=== PATIENT | male | born 1985 | race Caucasian/White ===

== ENCOUNTER 2018-06-06 18:53 | Emergency (ER) | payer OTHER, SELFPAY ==
[2018-06-06 19:06] VITALS: BP 132/81; PULSE 79; RESP 18; TEMP 37.2; O2SAT 98
--- NOTE | 2018-06-06 20:38 | ED.BACK ---
HPI - Back Pain/Injury General Chief Complaint: Back Pain/Injury Stated Complaint: HURT BACK AT WORK Time Seen by Provider: 06/06/18 20:38 Source: patient Mode of arrival: ambulatory Limitations: no limitations History of Present Illness HPI Narrative: A 32-year-old otherwise healthy male presents with a chief complaint lower midline back pain after lifting a heavy object at work. His pain is severe and radiates into his right hip. He denies any trouble with bowel or bladder control. He denies any numbness, tingling or weakness. He denies foot drop. He denies any direct trauma to the bones of his back and states this happened purely with lifting. He denies any history of back trouble. He has had no fever or chills MD Complaint: back pain Onset (ago): hour(s) Duration: constant Similar Symptoms Previously: No Location: lumbar spine Severity: severe Quality: burning and sharp Radiation: other (Right hip) Relieving factors: sitting upright Exacerbating factors: movement and walking Context: while lifting and turning/twisting Associated symptoms: denies other symptoms Related Data Previous Rx's Medication Instructions Recorded cyclobenzaprine 10 mg PO TID PRN #14 tab 06/06/18 hydrocodone-acetaminophen 1 tab PO Q4-6H PRN #14 tab 06/06/18 prednisone 20 mg PO DAILY #5 tab 06/06/18 Allergies Allergy/AdvReac Type Severity Reaction Status Date / Time No Known Drug Allergies Allergy Verified 06/06/18 19:06 Review of Systems Review of Systems All systems reviewed & are unremarkable except as noted in HPI and below Constitutional Denies chills, Denies fever(s), Denies lethargy and Denies weakness Eyes Denies change in vision, Denies eye discharge, Denies irritation and Denies loss of vision ENT Ears, Nose, Mouth, and Throat: Denies change in voice, Denies neck pain and Denies sore throat Cardiovascular Denies chest pain, Denies irregular heart rhythm, Denies lightheadedness, Denies palpitations, Denies dyspnea, Denies dyspnea on exertion and Denies orthopnea Respiratory Denies cough, Denies dyspnea, Denies dyspnea on exertion and Denies wheezing Gastrointestinal Gastrointestinal: Denies abdominal pain, Denies change in bowel habits, Denies diarrhea, Denies nausea and Denies vomiting Genitourinary Denies hematuria, Denies flank pain, Denies urinary incontinence and Denies urinary urgency Musculoskeletal Reports back pain and Denies neck pain Integumentary/Breasts Denies pruritus, Denies erythema, Denies rash and Denies wounds Neurologic Denies confusion, Denies loss of vision and Denies weakness Psychiatric Denies anxiety, Denies confusion, Denies depression, Denies homicidal ideation and Denies suicidal ideation Endocrine Denies palpitations Hematologic/Lymphatic Denies easy bruising Allergic/Immunologic Denies wheezing [facility] Social History Smoking Status: Never smoker Exam Narrative Exam Narrative: GEN: AOx3 and in mild distress EYES: Pupils are equal, round, and reactive to light and accommodation. Extraoccular muscles are intact bilaterally. There is no subconjunctival hemorrhage or exudate. CHEST: Lungs are clear to auscultation bilaterally and free of wheezes, rales, or rhonchi. Heart rate is regular rhythm, there are no murmurs, clicks, rubs, or gallops. There is no chest wall tenderness. ABD: Abdomen is soft and nontender. There is no guarding or rebound. Bowel sounds are normal in all 4 quadrants. There is no mass or organomegaly. EXT: Full painless ROM of all extremities with no loss of sensation or strength. SKIN: Warm, pink, and dry. No erythema or rash BACK: shredder tender peat but free of any obvious external abnormalities. Patient exam notes decreased range of motion and muscle spasm, but no CVA tenderness, or vertebral point tenderness. There are no symptoms of cauda equina such as saddle anesthesia, and decreased reflexes, decreased sensation or strength. Initial Vital Signs Initial Vital Signs: Vital Signs Temperature 98.9 F 06/06/18 19:06 Pulse Rate 79 06/06/18 19:06 Respiratory Rate 18 06/06/18 19:06 Blood Pressure 132/81 06/06/18 19:06 Pulse Oximetry 98 06/06/18 19:06 Course Orders Ordered: Discontinued Medications Hydrocodone Bitart/Acetaminophen (Vicodin Prepack) 1 bottle MISC SEEINSTR ONE Stop: 06/06/18 20:56 Last Admin: 06/06/18 21:43 Dose: 1 bottle Cyclobenzaprine HCl (Flexeril 10 Mg Prepack) 1 bottle MISC SEEINSTR ONE Stop: 06/06/18 20:56 Last Admin: 06/06/18 21:43 Dose: 1 bottle Ketorolac Tromethamine (Toradol) 60 mg IM NOW ONE Stop: 06/06/18 20:56 Last Admin: 06/06/18 21:43 Dose: 60 mg Prednisone (Deltasone) 40 mg PO NOW ONE Stop: 06/06/18 20:56 Last Admin: 06/06/18 21:43 Dose: 40 mg Vital Signs - 8 hr 06/06/18 19:06 Temperature 98.9 F Pulse Rate 79 Respiratory Rate 18 Blood Pressure 132/81 Pulse Oximetry 98 Discharge Plan Departure Patient Disposition: Home Clinical Impression: Lumbar radiculopathy Instructions: DI for Lumbar Radiculopathy Activity Restrictions/Additional Instructions: *You have been diagnosed with [ acute lumbar radiculopathy ] *What to do: *Take medications as directed *Follow up with your primary care provider in 2-3 days, call for an appointment. Let them know you were seen in the Emergency Department and that we ask that you be seen in follow up *Return to ER if you should have any new, worsening or concerning symptoms, such as [ increasing pain, numbness, tingling, weakness, loss of control of bowel or bladder] Prescriptions: New cyclobenzaprine 10 mg tablet 10 mg PO TID PRN (Reason: muscle spasm) Qty: 14 RF: 0 hydrocodone-acetaminophen 5-325 mg tablet 1 tab PO Q4-6H PRN (Reason: pain) Qty: 14 RF: 0 prednisone 20 mg tablet 20 mg PO DAILY Qty: 5 RF: 0
[2018-06-06 21:30] VITALS: BP 135/87; PULSE 75; RESP 15; O2SAT 100
[2018-06-06] MEDS: CYCLOBENZAPRINE 10 MG PREPACK 1 BOTTLE MISC (21:43)
[2018-06-06] MEDS: HYDROCODONE/ACET 5/325 PREPACK 1 BOTTLE MISC (21:43)
[2018-06-06] MEDS: predniSONE 20 MG TABLET 40 MG PO (21:43)
[2018-06-06] MEDS: KETOROLAC 60 MG/2 ML VIAL IM (21:43)
[2018-06-06 22:03] VITALS: BP 119/93; PULSE 68; RESP 15; O2SAT 100
[2018-06-06 22:04] VITALS: BP 127/85; PULSE 75; RESP 15; O2SAT 99
== END 2018-06-06 22:06 | disposition home or self-care (01) ==
PROVIDERS: Emergency Provider Emergency Medicine
DX: M54.16 Radiculopathy, lumbar region (principal); X50.0XXA Overexertion from strenuous movement or load, initial encounter
CPT/HCPCS: 96372; 99282; 99283; J1885

== ENCOUNTER → 2023-03-17 09:22 | Outpatient (CLI) | payer OTHER, SELFPAY ==
--- NOTE | 2023-03-17 09:26 | DI.MRI.S_ITS ---
PROCEDURE: MRFOOT LT WO CON INDICATIONS: pain in left foot TECHNIQUE: Noncontrast sagittal T1 spin echo and T2 fast spin echo with fat saturation, long-axis T1 spin echo and STIR, short-axis T1 spin echo and T2 fast spin echo with fat saturation through the forefoot. COMPARISON: [facility], CR, XR FOOT 3 VIEWS WEIGHT BEARING LEFT, 08/04/2021, 13:54. FINDINGS: Image quality: Excellent. Bones and joints: No bone marrow contusions or metatarsal stress fractures. The sesamoid bones appear in expected positions, without internal edema. [id number] degenerative changes of the 1st metatarsophalangeal joint. Mild scattered degenerative changes of the interphalangeal joints of the toes. No intraosseous lesions. Soft tissues: The visualized plantar foot muscles demonstrate normal signal and bulk. Visualized flexor and extensor tendons appear intact, without tenosynovitis. The distal insertions of the peroneus brevis and longus tendons appear intact. The principal Lisfranc ligament appears intact. No soft tissue ganglion cysts or bursal fluid collections. Sagittal images demonstrate no evidence for plantar plate tears. IMPRESSION: 1. 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 2. No acute trabecular bone injury. No significant ligament or tendon injury is seen in the forefoot. Approved by: Lázaro Hinson M.D. on 03/19/2023 at 10:37
--- NOTE | 2023-03-17 09:26 | DI.MRI.S_ITS ---
PROCEDURE: MR ANKLE LT WO CON INDICATIONS: pain in left foot TECHNIQUE: Noncontrast sagittal T1 spin echo and T2 fast spin echo with fat saturation, axial proton density fast spin echo and T2 fast spin echo with fat saturation, coronal T1 spin echo and T2 fast spin echo with fat saturation through the ankle/hindfoot. COMPARISON: [facility], MR, MR ANKLE LEFT WITHOUT CONTRAST, 10/14/2021, 16:39. FINDINGS: Image quality: Excellent. Bones and joints: No bone marrow contusions or fractures. No osteochondral injuries of the talar dome. Mild degenerative spurring of the dorsal talonavicular joint. 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 Medial structures: The deep and superficial layers of the deltoid ligament appear intact. The spring ligament components are intact. The posterior tibialis, flexor digitorum longus, and flexor hallucis longus tendons are intact. The posterior tibial neurovascular bundle appears normal within the tarsal tunnel, without extrinsic mass effect. Lateral structures: Increased signal intensity is again seen within the posterior talofibular ligament that appear similar when compared to the MRI from 10/14/2021, suspicious for a remote prior sprain. The anterior talofibular ligament and the calcaneofibular ligament appear to be intact. The anterior and posterior tibiofibular ligaments appear intact. The peroneus longus and brevis tendons demonstrate normal location and morphology. The sinus tarsi demonstrates normal fatty signal. Anterior structures: The tibialis anterior, extensor hallucis longus, and extensor digitorum longus tendons appear intact. Posterior and plantar structures: Small nonedematous posterior calcaneal enthesophyte. Achilles tendon is intact. Medial and lateral bands of the plantar fascia are of normal thickness. No abductor digiti quinti muscle atrophy to suggest Sadler neuropathy. IMPRESSION: 1. Stable increased signal intensity within the posterior talofibular ligament that again could possibly be the sequela of a remote prior isolated low-grade sprain versus joint fluid interdigitating between ligament fibers. No definite ligament discontinuity is seen. The anterior talofibular ligament and calcaneofibular ligament remain intact. 2. 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 3. Mild degenerative spurring of the dorsal aspect of the talonavicular joint. Approved by: Lázaro Hinson M.D. on 03/19/2023 at 10:37
== END ==
PROVIDERS: Referring Provider Podiatrist; Visit Provider Podiatrist
DX: S93.602A Unspecified sprain of left foot, initial encounter (principal); M19.072 Primary osteoarthritis, left ankle and foot; M79.672 Pain in left foot; X58.XXXA Exposure to other specified factors, initial encounter
CPT/HCPCS: 73718; 73721

== ENCOUNTER 2023-05-20 13:03 | Emergency (ER) | payer OTHER, SELFPAY ==
[2023-05-20 13:34] VITALS: BP 140/84; PULSE 93; RESP 16; TEMP 36.7; O2SAT 97; BMI 28.3
[2023-05-20 14:05] LABS: Strep Grp A by PCR Rapid Negative (Negative)
--- NOTE | 2023-05-20 18:11 | DI.RAD.S_ITS ---
PROCEDURE: XR SOFT TISSUE NECK INDICATIONS: throat pain, feels like something stuck TECHNIQUE: 2 views of the neck were acquired. COMPARISON: None. FINDINGS: Airway: The airway appears patent. Soft tissues: Prevertebral soft tissues are normal in thickness. The epiglottis and aryepiglottic folds appear normal. No soft tissue gas. Bones: No suspicious bony lesions. Visualized cervical spine is normally aligned. IMPRESSION: No radiopaque foreign body identified. No tissue swelling of the prevertebral soft tissues Dictated by: Frank Copeland M.D. on 05/20/2023 at 17:27 Approved by: Frank Copeland M.D. on 05/20/2023 at 17:28
--- NOTE | 2023-05-20 18:12 | ED.URI ---
HPI - URI/Sore Throat General Chief Complaint: Upper Respiratory Symptoms Stated Complaint: throat pain/feels like somethings stuck Time Seen by Provider: 05/20/23 18:05 History of Present Illness HPI Narrative: 37-year-old male nonsmoker with noncontributory chronic medical history presents with a chief complaint of throat pain on the right lower side of his throat and he feels almost like something might be stuck but does not recall any specific or memorable event in terms of possible foreign body. He denies any runny nose, fever or chills. He is had no cough or shortness of breath. He is able to eat and drink but does state that he can feel when things go down. He denies any history of the same. Related Data Previous Rx's Medication Instructions Recorded cyclobenzaprine 10 mg tablet 10 mg PO TID PRN muscle spasm #14 06/06/18 tabs hydrocodone 5 mg-acetaminophen 325 1 tab PO Q4-6H PRN pain #14 tabs 06/06/18 mg tablet prednisone 20 mg tablet 20 mg PO DAILY #5 tabs 06/06/18 Allergies Allergy/AdvReac Type Severity Reaction Status Date / Time No Known Drug Allergies Allergy Verified 06/06/18 19:06 Review of Systems Review of Systems Narrative: GENERAL: Denies chills, fatigue, malaise, fever, sweats. HEENT: See HPI RESPIRATORY: Denies dyspnea, cough, wheezing, hemoptysis, sputum. CARDIOVASCULAR: Denies chest pain, palpitations, orthopnea, edema, GASTROINTESTINAL: Denies nausea, vomiting, abdominal pain, diarrhea, constipation, melena. : Denies dysuria, frequency, incontinence, hematuria, urinary retention. MUSCULOSKELETAL: denies weakness, joint pain, or bony pain SKIN: Denies rash, skin lesions, or other NEUROLOGIC: Denies weakness, headache, numbness, change in speech, confusion, seizures, incoordination. PSYCHIATRIC: No concerning psychosocial issues. 12 point review of systems is negative except for those stated above Patient History Social History Smoking Status: Never smoker Smoking Status: Never smoker alcohol intake frequency: holidays/special occasions only Substance Use Type: does not use Exam Narrative Exam Narrative: GEN: AOx3 and in mild distress EYES: Pupils are equal, round, and reactive to light and accommodation. Extraoccular muscles are intact bilaterally. There is no subconjunctival hemorrhage or exudate. ENT: Moist mucous membranes, no tonsillar swelling, exudate or erythema, no evidence of mass, no pointing uvula. Controlling secretions, airway patent. No obvious swelling or anterior lymphadenopathy on exam CHEST: Lungs are clear to auscultation bilaterally and free of wheezes, rales, or rhonchi. Heart rate is regular rhythm, there are no murmurs, clicks, rubs, or gallops. There is no chest wall tenderness. ABD: Abdomen is soft and nontender. There is no guarding or rebound. Bowel sounds are normal in all 4 quadrants. There is no mass or organomegaly. EXT: Full painless ROM of all extremities with no loss of sensation or strength. SKIN: Warm, pink, and dry. No erythema or rash Initial Vital Signs Initial Vital Signs: Vital Signs Temperature 98.0 F 05/20/23 13:34 Pulse Rate 93 H 05/20/23 13:34 Respiratory Rate 16 05/20/23 13:34 Blood Pressure 140/84 05/20/23 13:34 Pulse Oximetry 97 05/20/23 13:34 Oxygen Delivery Method Room Air 05/20/23 13:34 Course Orders Ordered: ED Orders 05/20/23 13:38 Strep Grp A by PCR Rapid Stat Throat Culture Stat 05/20/23 18:11 XR soft tissue neck Stat Vital Signs Vital signs: Vital Signs - 8 hr 05/20/23 13:34 05/20/23 18:14 Temperature 98.0 F Pulse Rate 93 H 95 H Respiratory Rate 16 18 Blood Pressure 140/84 140/82 Pulse Oximetry 97 98 Oxygen Delivery Method Room Air Room Air MDM - URI/Sore Throat Lab Data Labs: Lab Results 05/20/23 Range/Units 13:38 Group A Strep (PCR) Negative (Negative) MDM Narrative Medical decision making narrative: [37] year old patient presents with throat pain and possible foreign body Multiple etiologies for patient's symptoms considered including, but not limited to: [Foreign body versus infectious process versus other] Prior Charts reviewed in our EMR Primary Historian: patient Labs reviewed and interpreted by myself: Rapid strep negative Imaging reviewed: Soft tissue neck without swelling of obvious foreign body History and physical are reassuring. IMaging and swabs without abnormalities. Able to tolerated food and drink, no trouble breathing. No indication for further labs/imaging. Would likely benefit from endoscopic evaluation Patient's symptoms improved over duration of stay with above-stated therapies. Findings and discharge diagnosis discussed with patient/family followed by verbalization of understanding Return precautions discussed with patient/family whom verbalize understanding of diagnosis and plan Discharge Plan Departure Patient Disposition: Home Clinical Impression: Pain in throat Instructions: Sore Throat Activity Restrictions/Additional Instructions: *You have been diagnosed with [pain in throat. As we discussed your history and physical exam are reassuring and your x-ray shows no obvious swelling or foreign body.] *What to do: *Please continue to take your regular medications as directed. [ ] New medication prescriptions sent to your pharmacy: [ ] [ ] New medication written as a paper prescription [ ] No new medications given *Please follow up with your primary care provider in 2-3 days, call for an appointment. Let them know you were seen in the Emergency Department and that we ask that you be seen in follow up. We will electronically transmit a record of today's note if your PCP is in our system * as we discussed I have included the contact information for [facility]. It would seem reasonable to talk with them about the possibility of endoscopy to take a look. *If you do not have a primary care provider please contact the [facility] Resource line at [phone]. They will ask some questions about your medical history and help get you set up with a doctor in the community. *Return to Emergency Department if you should have any new, worsening or concerning symptoms, such as [fever greater than 101 F, shaking chills, worsening pain, persistent vomiting or other bothersome symptoms] Prescriptions: No Action cyclobenzaprine 10 mg tablet 10 mg PO TID PRN (Reason: muscle spasm) Qty: 14 0RF hydrocodone-acetaminophen 5-325 mg tablet 1 tab PO Q4-6H PRN (Reason: pain) Qty: 14 0RF prednisone 20 mg tablet 20 mg PO DAILY Qty: 5 0RF Rx Instructions: administer with food or milk Referrals: Abdirahman Corona MD [Physician] - Stand Alone Forms: Patient Portal/API
[2023-05-20 18:14] VITALS: BP 140/82; PULSE 95; RESP 18; O2SAT 98
== END 2023-05-20 19:17 | disposition home or self-care (01) ==
PROVIDERS: Emergency Medicine; Emergency Provider Emergency Medicine
DX: R07.0 Pain in throat (principal)
CPT/HCPCS: 70360; 87070; 87651; 99281; 99283

== ENCOUNTER 2023-08-07 12:50 | Emergency (ER) | payer OTHER, SELFPAY ==
[2023-08-07 12:52] VITALS: BP 141/76; PULSE 73; RESP 18; TEMP 36.6; O2SAT 95; BMI 29.1
--- NOTE | 2023-08-07 13:01 | DI.RAD.S_ITS ---
PROCEDURE: XR CHEST 1V INDICATIONS: chest pain TECHNIQUE: One view of the chest was acquired. COMPARISON: None. FINDINGS: Surgical changes and devices: None. Lungs and pleura: Lungs are clear. No pleural effusions or pneumothorax. Mediastinum: Mediastinal contours appear normal. Heart size is normal. Bones and chest wall: No suspicious bony lesions. Overlying soft tissues appear unremarkable. IMPRESSION: No acute cardiopulmonary process. Dictated by: Holland Lee M.D. on 08/07/2023 at 13:42 Approved by: Holland Lee M.D. on 08/07/2023 at 13:43
[2023-08-07 13:08] VITALS: PULSE 77; RESP 18; O2SAT 96
[2023-08-07 13:25] LABS: Basophils Absolute Auto 100 /uL (0-100); Eosinophils Absolute Auto 100 /uL (0-450); Eosinophils Percent Auto 0.7 % (2-4); Red Cell Distribution Width 13.2 % (11.6-14.8)
[2023-08-07 13:29] LABS: Add Manual Diff / Slide Review NO; Basophils Percent Auto 0.8 % (0-2); Hematocrit 47.3 % (41-53); Hemoglobin 16.6 g/dL (13.5-17.5); Lymphocytes Absolute Auto 2700 /uL (1100-4500); Lymphocytes Percent Auto 25.7 % (25-40); Mean Corpuscular HGB Conc 35.1 % (30-36); Mean Corpuscular Hemoglobin 31.4 PG (26-34); Mean Corpuscular Volume 89.5 fL (80-100); Monocytes Absolute Auto 600 /uL (0-900); Monocytes Percent Auto 5.7 % (3-14); Neutrophils Absolute Auto 7000 /uL (1500-7000); Neutrophils Percent Auto 67.1 % (50-75); Platelet Count 245 X10^3/uL (150-400); Red Blood Cell Count 5.28 X10^6/uL (4.5-5.9); White Blood Cell Count 10.4 X10^3/uL (4.5-11.0)
[2023-08-07 13:30] VITALS: BP 138/77; PULSE 76; RESP 18; O2SAT 97
[2023-08-07 13:34] LABS: Alanine Aminotransferase 52 IU/L (<50); Albumin 4.6 g/dL (3.5-5.0); Albumin Globulin Ratio 1.5 (1.0-2.8); Alkaline Phosphatase 55 U/L (38-126); Aspartate Aminotransferase 36 IU/L (17-59); BUN Creatinine Ratio 12.4 (6-22); Bilirubin Total 0.8 mg/dL (0.2-1.3); Blood Urea Nitrogen 12 mg/dL (9-20); Calcium 9.6 mg/dL (8.4-10.2); Carbon Dioxide 28 mmol/L (22-32); Chloride 101 mmol/L (98-107); Creatine Kinase 102 U/L (55-170); Estimated Glomerular Filt Rate > 60 mL/min (>60); Globulin 3.1 g/dL (1.7-4.1); Glucose 135 mg/dL (70-100); HEMOLYSIS 25 (0-50); Lipase 80 U/L (23-300); Sodium 137 mmol/L (137-145); Total Protein 7.7 g/dL (6.3-8.2)
[2023-08-07] MEDS: ASPIRIN 81 MG CHEW TAB 324 MG PO (13:36)
--- NOTE | 2023-08-07 13:43 | DI.US.S_ITS ---
PROCEDURE: US ABDOMEN LIMITED INDICATIONS: RIGHT UPPER QUADRANT PAIN TECHNIQUE: Real-time scanning was performed of the abdominal and retroperitoneal organs, with image documentation. COMPARISON: None. FINDINGS: Liver: The liver is increased in echogenicity. The liver is normal in size. There is focal fatty sparing adjacent to the gallbladder. Gallbladder: The gallbladder is normal in appearance without gallstones or gallbladder wall thickening. Biliary ducts: Intrahepatic bile ducts are non-dilated. Extrahepatic bile duct caliber measures 2 mm. Normal is 6-7 mm or less in diameter, or 10 mm or less post-cholecystectomy. Pancreas: Visualized portions of the pancreas are sonographically normal. IVC: Patent IMPRESSION: 1. The gallbladder is normal in appearance without gallstones or gallbladder wall thickening. 2. Increased hepatic echogenicity noted possibly related to hepatic steatosis but other sources of hepatocellular disease or hepatic cirrhosis cannot be excluded. Recommend clinical correlation. Dictated by: Holland Lee M.D. on 08/07/2023 at 14:48 Approved by: Holland Lee M.D. on 08/07/2023 at 14:49
[2023-08-07 13:44] LABS: Troponin I < 0.012 ng/mL (0.01-0.034)
--- NOTE | 2023-08-07 13:44 | ED.CHESTPAIN ---
HPI - Chest Pain General Chief Complaint: Chest Pain Stated Complaint: chest pain/behind rt ribs Time Seen by Provider: 08/07/23 13:21 Source: patient Mode of arrival: Ambulatory Limitations: no limitations History of Present Illness HPI narrative: 38-year-old male with remote history of spontaneous pneumothorax x2 (pleurodesis at 17yo, no subsequent PTX) presents for right-sided upper abdominal/lower chest pain. Patient noticed a sharp pain when he woke up this morning. He states that it feels different from his pneumothorax and from a kidney stone, both of which she is had in the past. No medications taken prior to arrival. Pain-free currently. Denies history of abdominal surgeries. Patient points to his R upper abdomen just at the base of the rib cage as source of pain. Related Data Previous Rx's Medication Instructions Recorded cyclobenzaprine 10 mg tablet 10 mg PO TID PRN muscle spasm #14 06/06/18 tabs hydrocodone 5 mg-acetaminophen 325 1 tab PO Q4-6H PRN pain #14 tabs 06/06/18 mg tablet prednisone 20 mg tablet 20 mg PO DAILY #5 tabs 06/06/18 Allergies Allergy/AdvReac Type Severity Reaction Status Date / Time No Known Drug Allergies Allergy Verified 06/06/18 19:06 Review of Systems Review of Systems Narrative: CONSTITUTIONAL- Denies: fever, chills, fatigue HEENT- Denies: sore throat, nosebleed, vision changes RESPIRATORY- Denies: shortness of breath, cough, wheezing CARDIAC-reports: Right-sided chest pain Denies: edema, orthopnea GI-reports: Right-sided abdominal pain Denies: nausea, vomiting, constipation, diarrhea - Denies: frequency, dysuria, hematuria, flank pain MSK- Denies: extremity pain, extremity swelling, joint pain, joint swelling SKIN- Denies: rash, itching, burn, swelling NEUROLOGICAL- Denies: headache, numbness, weakness, dizziness PSYCHIATRIC- Denies: anxiety, depression, suicidal ideation, homicidal ideation Patient History Social History Smoking Status: Never smoker Smoking Status: Never smoker alcohol intake frequency: holidays/special occasions only Substance Use Type: does not use Exam Initial Vital Signs Initial Vital Signs: Vital Signs Temperature 97.8 F 08/07/23 12:52 Pulse Rate 73 08/07/23 12:52 Respiratory Rate 18 08/07/23 12:52 Blood Pressure 141/76 H 08/07/23 12:52 Pulse Oximetry 95 08/07/23 12:52 Oxygen Delivery Method Room Air 08/07/23 12:52 Const: Awake, alert, no acute distress, nontoxic appearing Eyes: PERRL, EOMI, conjunctiva normal ENT: Atraumatic, dentition normal, mucous membranes moist Cardiac: regular rate, regular rhythm RESP: unlabored, clear bilaterally, no wheezing GI: Atraumatic, soft, nontender, negative Husain's sign MSK: Atraumatic, full range of motion, pulses equal Skin: Warm, Dry, intact, no rashes Neuro: AO x3, CN II-XII grossly intact, moves all extremities Psych: affect normal, mood normal, not suicidal, not homicidal Course Course Course Narrative: Right lower chest/right upper abdominal pain. No reproducible tenderness to palpation. Currently asymptomatic. Patient is reported area of the pain is near liver/gallbladder. Will add US of abdomen. Orders Ordered: Discontinued Medications Aspirin (Aspirin 81 Mg Chew Tab) 324 mg PO NOW ONE Stop: 08/07/23 13:02 Last Admin: 08/07/23 13:36 Dose: 324 mg Documented By: RLS Reevaluation(s) Reevaluation #1: Laboratory work is reviewed, unremarkable. Chest x-ray normal, no explanation for symptoms. Ultrasound of the upper quadrant shows possible fatty infiltration of the liver, no other acute abnormalities. Patient informed of the abdominal ultrasound results, and counseled to follow up routinely with PCP for this finding. ED return precautions discussed at bedside. Patient expressed understanding of the plan and is in agreement at this time. All questions answered at the time of discharge. Vital Signs Vital signs: Vital Signs - 8 hr 08/07/23 12:52 08/07/23 13:08 08/07/23 13:30 Temperature 97.8 F Pulse Rate 73 77 76 Respiratory Rate 18 18 18 Blood Pressure 141/76 H Pulse Oximetry 95 96 97 Oxygen Delivery Method Room Air 08/07/23 13:30 08/07/23 14:00 08/07/23 14:00 Temperature Pulse Rate 72 Respiratory Rate 16 Blood Pressure 138/77 115/65 Pulse Oximetry 97 Oxygen Delivery Method Room Air 08/07/23 14:30 08/07/23 14:30 08/07/23 15:00 Temperature Pulse Rate 81 78 Respiratory Rate 23 15 Blood Pressure 126/90 Pulse Oximetry 97 96 Oxygen Delivery Method 08/07/23 15:00 Temperature Pulse Rate Respiratory Rate Blood Pressure 135/82 Pulse Oximetry Oxygen Delivery Method MDM - Chest Pain Differential Diagnosis Differential diagnosis: Likely pneumothorax, atypical chest pain and costochondritis Lab Data 08/07/23 13:08 08/07/23 13:08 Labs: Lab Results 08/07/23 Range/Units 13:08 WBC 10.4 (4.5-11.0) X10^3/uL RBC 5.28 (4.5-5.9) X10^6/uL Hgb 16.6 (13.5-17.5) g/dL Hct 47.3 (41-53) % MCV 89.5 (80-100) fL MCH 31.4 (26-34) PG MCHC 35.1 (30-36) % RDW 13.2 (11.6-14.8) % Plt Count 245 (150-400) X10^3/uL Neut % (Auto) 67.1 (50-75) % Lymph % (Auto) 25.7 (25-40) % [place] % (Auto) 5.7 (3-14) % Eos % (Auto) 0.7 L (2-4) % Baso % (Auto) 0.8 (0-2) % Neut # (Auto) 7000 (3813-5986) /uL Lymph # (Auto) 2700 (9853-8486) /uL [place] # (Auto) 600 (0-900) /uL Eos # (Auto) 100 (0-450) /uL Baso # (Auto) 100 (0-100) /uL Sodium 137 (137-145) mmol/L Potassium 4.0 (3.4-5.1) mmol/L Chloride 101 (98-107) mmol/L Carbon Dioxide 28 (22-32) mmol/L BUN 12 (9-20) mg/dL Creatinine 0.97 (0.66-1.25) mg/dL Estimated GFR > 60 (>60) mL/min BUN/Creatinine Ratio 12.4 (6-22) Glucose 135 H (70-100) mg/dL Calcium 9.6 (8.4-10.2) mg/dL Total Bilirubin 0.8 (0.2-1.3) mg/dL AST 36 (17-59) IU/L ALT 52 H (<50) IU/L Alkaline Phosphatase 55 (38-126) U/L Total Creatine Kinase 102 (55-170) U/L Troponin I < 0.012 (0.01-0.034) ng/mL Total Protein 7.7 (6.3-8.2) g/dL Albumin 4.6 (3.5-5.0) g/dL Globulin 3.1 (1.7-4.1) g/dL Albumin/Globulin Ratio 1.5 (1.0-2.8) Lipase 80 (23-300) U/L ECG Data Interpretation: Normal sinus rhythm, MN intervals normal, no STT wave changes, no STEMI Discharge Plan Departure Patient Disposition: Home Clinical Impression: Abdominal pain Qualifiers: Abdominal location: right upper quadrant Qualified Code(s): R10.11 - Right upper quadrant pain Instructions: DI for Abdominal Pain-Adult Activity Restrictions/Additional Instructions: You were seen today for right-sided pain behind the ribs. Your laboratory work today was normal, the ultrasound of your abdomen did show that you have a mildly fatty liver, they recommend that you follow up with your primary care physician for further monitoring of this finding. You may take Tylenol and Motrin as needed for pain. Prescriptions: No Action cyclobenzaprine 10 mg tablet 10 mg PO TID PRN (Reason: muscle spasm) Qty: 14 0RF hydrocodone-acetaminophen 5-325 mg tablet 1 tab PO Q4-6H PRN (Reason: pain) Qty: 14 0RF prednisone 20 mg tablet 20 mg PO DAILY Qty: 5 0RF Rx Instructions: administer with food or milk Stand Alone Forms: Patient Portal/API
[2023-08-07 14:00] VITALS: BP 115/65; PULSE 72; RESP 16; O2SAT 97
[2023-08-07 14:30] VITALS: BP 126/90; PULSE 81; RESP 23; O2SAT 97
[2023-08-07 15:00] VITALS: BP 135/82; PULSE 78; RESP 15; O2SAT 96
== END 2023-08-07 15:13 | disposition home or self-care (01) ==
PROVIDERS: Emergency Provider Emergency Medicine
DX: R10.11 Right upper quadrant pain (principal)
CPT/HCPCS: 36415; 71045; 76705; 80053; 82550; 83690; 84484; 85025; 93005; 99284